=== PATIENT | female | born 1955 | race Caucasian/White ===

== ENCOUNTER 2021-07-19 09:07 | Outpatient (CLI) | payer OTHER | END 2021-07-19 09:08 | disposition home or self-care (01) | LOC: CSHMAMMO 09:07 | PROVIDERS: ATTEND Internal Medicine | DX: Z13.820 Encounter for screening for osteoporosis (principal) | CPT/HCPCS: 77080 ==

== ENCOUNTER 2022-03-26 08:07 | Outpatient (CLI) | payer MEDICARE | END 2022-03-26 08:08 | disposition home or self-care (01) | LOC: CSHMAMMO 08:07 | PROVIDERS: ATTEND Internal Medicine | DX: Z12.31 Encounter for screening mammogram for malignant neoplasm of breast (principal) | CPT/HCPCS: 77063; 77067 ==

== ENCOUNTER 2024-01-05 20:24 | Emergency (ER) | payer MEDICARE ==
[2024-01-05] MEDS ORDERED: hydrALAZINE 25 MG TAB ONE (21:13)
[2024-01-05] MEDS ORDERED: Cephalexin 250 MG CAP ONE (21:14)
== END 2024-01-05 21:23 | disposition home or self-care (01) ==
LOC: CSHERS 20:24
DX: S40.861A Insect bite (nonvenomous) of right upper arm, initial encounter (principal); S80.862A Insect bite (nonvenomous), left lower leg, initial encounter; S80.861A Insect bite (nonvenomous), right lower leg, initial encounter; S50.862A Insect bite (nonvenomous) of left forearm, initial encounter; S50.861A Insect bite (nonvenomous) of right forearm, initial encounter; L08.9 Local infection of the skin and subcutaneous tissue, unspecified; Z55.6 Problems related to health literacy; Z87.891 Personal history of nicotine dependence; W57.XXXA Bitten or stung by nonvenomous insect and other nonvenomous arthropods, initial encounter
CPT/HCPCS: 99283

== ENCOUNTER 2024-07-22 10:56 | Outpatient (CLI) | payer MEDICARE | END 2024-07-22 10:57 | disposition home or self-care (01) | LOC: CSHMAMMO 10:56 | PROVIDERS: ATTEND Internal Medicine | DX: Z12.31 Encounter for screening mammogram for malignant neoplasm of breast (principal) | CPT/HCPCS: 77063; 77067 ==